=== PATIENT | male | born 1950 | race Hispanic/Latino ===

== ENCOUNTER → 2018-05-18 | Day surgery (SDC) | payer MEDICARE, OTHER ==
[2018-05-11 12:32] LABS: BASOPHILS % 0.5 % (0.0-1.0); EOSINOPHILS # (AUTO) 0.1 (0.0-0.4); EOSINOPHILS % 1.2 % (0.0-6.0); HEMATOCRIT 41.8 % (38.2-49.6); HEMOGLOBIN 14.2 g/dL (14.0-18.0); LYMPHOCYTES # (AUTO) 1.2 (1.0-3.2); LYMPHOCYTES % 21.8 % (18.0-39.1); MEAN CORPUSCULAR VOLUME 91.3 fL (81-99); MONOCYTES # (AUTO) 0.5 (0.2-0.8); NEUTROPHILS # (AUTO) 3.8 (2.1-6.9); NEUTROPHILS % 66.6 % (38.7-80.0); PLATELET COUNT 144 x10e3/uL (140-360); RED BLOOD COUNT 4.58 x10e6/uL (4.3-5.7); RED CELL DISTRIBUTION WIDTH 13.6 % (11.7-14.4)
[~2018-05-18] MED LIST: ATORVASTATIN CA20 MG PO; FENTANYL CITRATE/PF 100MCG/2 ML INJ ONE; FINASTERIDE5 MG PO; FLOMAX0.4 MG PO; HYOSCYAMINE SULFATE 0.5 MG/ML INJ ONE; METFORMIN HCL500 MG PO; METHENAMINE1 GM PO; MIDAZOLAM HCL 2 MG/2 ML VIAL ONE; OMEGA 3 1,0001 EACH PO; OMEPRAZOLE40 MG PO; PROPOFOL IV EMULSION 10 MG/ML 20 ML VIAL ONE; PROPOFOL IV EMULSION 10 MG/ML 50 ML VIAL ONE
--- OUTSIDE RECORDS SUMMARY | 2018-05-18 10:12 | XMS REPORT | Summary of Care ---
Author Author [facility] Organization [facility] Address Unknown Phone Unavailable Encounter RENE Dawn(NATHAN) [id number] Date(s): 10/10/17 - 10/10/17 [facility] [address] [place] [address]- Encounter Diagnosis Acute orchitis (Discharge Diagnosis) - 10/10/17 Discharge Disposition: Home or Self Care Attending Physician: Andrew Fuentes MD Vital Signs Most recent to 1 2 oldest [Reference Range]: Height 165.1 cm (10/10/17 10:16 AM) Temperature Oral 98.1 DegF 98.5 DegF [96.4-99.1 DegF] (10/10/17 1:51 PM) (10/10/17 10:16 AM) Blood Pressure 119/74 mmHg 129/73 mmHg [90-140/60-90 mmHg] (10/10/17 1:51 PM) (10/10/17 10:16 AM) Respiratory Rate 16 BRMIN 18 BRMIN [14-20 BRMIN] (10/10/17 1:51 PM) (10/10/17 10:16 AM) Peripheral Pulse 71 bpm 83 bpm Rate [60-100 bpm] (10/10/17 1:51 PM) (10/10/17 10:16 AM) Weight 79.545 kg (10/10/17 10:16 AM) Body Mass Index 29.18 m2 (10/10/17 10:16 AM) Problem List Condition Effective Dates Status Health Status Informant Arthritis(Confirmed) Resolved Allergies, Adverse Reactions, Alerts Substance Reaction Severity Status NKDA Active Medications Levaquin 500 mg oral tablet 500 mg=1 tab, PO, Q24H, X 14 day, # 14 tab, 0 Refill(s) Start Date: 10/10/17 Stop Date: 10/24/17 Status: Ordered [place] 5/325 oral tablet 1 tab, Route: PO, Drug Form: TAB, Dosing Weight 79.545, kg, ONCE, STAT, Start da te: 10/10/17 11:45:00 CDT, Stop date: 10/10/17 11:45:00 CDT Notes: (Same as: Winfield 325/5) Do not exceed 4gm/day of acetaminophen. Start Date: 10/10/17 Stop Date: 10/10/17 Status: Completed Rocephin 250 mg, Route: IM, Drug form: PDR/INJ, ONCE, Dosing Weight 79.545, kg, Priority: STAT, Start date: 10/10/17 12:10:00 CDT, Stop date: 10/10/17 12:10:00 CDT, ABX Indication: Genital Tract Infection Notes: (Same As: Rocephin) Start Date: 10/10/17 Stop Date: 10/10/17 Status: Completed Rocephin 2 gm, Route: IVPB, Drug form: PDR/INJ, ONCE, Dosing Weight 79.545, kg, Priority: STAT, Start date: 10/10/17 13:16:00 CDT, Stop date: 10/10/17 13:16:00 CDT, ABX Indication: Intra-abdominal Infection Start Date: 10/10/17 Stop Date: 10/10/17 Status: Completed Rocephin 1,750 mg, Route: IVPB, Drug form: PDR/INJ, ONCE, Dosing Weight 79.545, kg, Prior ity: STAT, Start date: 10/10/17 13:08:00 CDT, Stop date: 10/10/17 13:08:00 CDT, ABX Indication: Urinary Tract Infection Start Date: 10/10/17 Stop Date: 10/10/17 Status: Discontinued Zithromax 500 mg, 2 tab, Route: PO, Drug form: TAB, Daily, Dosing Weight 79.545, kg, Start date: 10/10/17 13:00:00 CDT, Duration: 30 day, Stop date: 11/08/17 13:00:00 CDT, ABX Indication: Genital Tract Infection Notes: Take 1 hour before or 2 hours after meals.(Same As: Zithromax) Start Date: 10/10/17 Stop Date: 10/10/17 Status: Discontinued Zofran ODT 4 mg, 1 tab, Route: PO, Drug form: TABDIS, ONCE, Dosing Weight 79.545, kg, Prior ity: STAT, Start date: 10/10/17 11:45:00 CDT, Stop date: 10/10/17 11:45:00 CDT Notes: (Same as: Zofran ODT) Start Date: 10/10/17 Stop Date: 10/10/17 Status: Completed Results ELECTROLYTES Most recent to 1 oldest [Reference Range]: Sodium Lvl [135-145 144 mEq/L mEq/L] (10/10/17 11:58 AM) Potassium Lvl 3.9 mEq/L [3.5-5.1 mEq/L] (10/10/17 11:58 AM) Chloride Lvl [95-109 109 mEq/L mEq/L] (10/10/17 11:58 AM) CO2 [24-32 mEq/L] 27 mEq/L (10/10/17 11:58 AM) AGAP [10.0-20.0 11.9 mEq/L mEq/L] (10/10/17 11:58 AM) CHEM PANEL Most recent to 1 oldest [Reference Range]: Creatinine Lvl 1.14 mg/dL [0.50-1.40 mg/dL] (10/10/17 11:58 AM) eGFR 67 mL/min/1.73m2 1 *NA* (10/10/17 11:58 AM) BUN [7-22 mg/dL] 14 mg/dL (10/10/17 11:58 AM) Glucose Lvl [70-99 142 mg/dL mg/dL] *HI* (10/10/17 11:58 AM) Calcium Lvl 9.3 mg/dL [8.5-10.5 mg/dL] (10/10/17 11:58 AM) 1Result Comment: The eGFR is calculated using the CKD-EPI formula. In most young, healthy individuals the eGFR will be >90 mL/min/1.73m2. The eGFR declines with age. An eGFR of 60-89 may be normal in some populations, particularly the elderly, for whom the CKD-EPI formula has not been extensively validated. Use of the eGFR is not recommended in the following populations: Individuals with unstable creatinine concentrations, including patients and those with serious co-morbid conditions. Patients with extremes in muscle mass or diet. The data above are obtained from the National Kidney Disease Education Program ( NKDEP) which additionally recommends that when the eGFR is used in patients with extremes of body mass index for purposes of drug dosing, the eGFR should be mul tiplied by the estimated BMI. URINE AND STOOL Most recent to 1 oldest [Reference Range]: UA Turbidity [Clear] Clear (10/10/17 11:58 AM) UA Color [Yellow] Yellow *NA* (10/10/17 11:58 AM) UA pH [5.0-8.0] 6.0 (10/10/17 11:58 AM) UA Spec Grav 1.019 [<=1.030] (10/10/17 11:58 AM) UA Glucose [Negative 50 mg/dL mg/dL] *ABN* (10/10/17 11:58 AM) UA Blood [Negative] Negative (10/10/17 11:58 AM) UA Ketones [Negative Negative mg/dL mg/dL] *NA* (10/10/17 11:58 AM) UA Protein [Negative Negative mg/dL mg/dL] (10/10/17 11:58 AM) UA Urobilinogen 4.0 mg/dL [0.1-1.0 mg/dL] *HI* (10/10/17 11:58 AM) UA Bili [Negative] Negative *NA* (10/10/17 11:58 AM) UA Leuk Est Negative [Negative] (10/10/17 11:58 AM) UA Nitrite Negative [Negative] (10/10/17 11:58 AM) UA Sq Epi None Seen *NA* (10/10/17 11:58 AM) HEMATOLOGY Most recent to 1 oldest [Reference Range]: WBC [3.7-10.4 K/CMM] 6.9 K/CMM (10/10/17 11:58 AM) RBC [4.70-6.10 4.40 M/CMM M/CMM] *LOW* (10/10/17 11:58 AM) Hgb [14.0-18.0 g/dL] 13.7 g/dL *LOW* (10/10/17 11:58 AM) Hct [42.0-54.0 %] 40.7 % *LOW* (10/10/17 11:58 AM) MCV [80.0-94.0 fL] 92.7 fL (10/10/17 11:58 AM) MCH [27.0-31.0 pg] 31.2 pg *HI* (10/10/17 11:58 AM) MCHC [32.0-36.0 33.7 g/dL g/dL] (10/10/17 11:58 AM) RDW [11.5-14.5 %] 14.2 % (10/10/17 11:58 AM) MPV [7.4-10.4 fL] 10.5 fL *HI* (10/10/17 11:58 AM) Platelet [133-450 126 K/CMM K/CMM] *LOW* (10/10/17 11:58 AM) Segs [45.0-75.0 %] 77.6 % *HI* (10/10/17 11:58 AM) Lymphocytes 10.4 % [20.0-40.0 %] *LOW* (10/10/17 11:58 AM) Monocytes [2.0-12.0 10.7 % %] (10/10/17 11:58 AM) Eosinophils [0.0-4.0 0.9 % %] (10/10/17 11:58 AM) Basophils [0.0-1.0 0.4 % %] (10/10/17 11:58 AM) Segs-Bands # 5.4 K/CMM [1.5-8.1 K/CMM] (10/10/17 11:58 AM) Lymphocytes # 0.7 K/CMM [1.0-5.5 K/CMM] *LOW* (10/10/17 11:58 AM) Monocytes # [0.0-0.8 0.7 K/CMM K/CMM] (10/10/17 11:58 AM) Eosinophils # 0.1 K/CMM [0.0-0.5 K/CMM] (10/10/17 11:58 AM) Immunizations No data available for this section Procedures No data available for this section Social History Social History Type Response Smoking Status Never smoker; Exposure to Tobacco Smoke None; Cigarette Smoking Last 365 Days No; Reg Smoking Cessation Counseling No entered on: 09/03/17 Assessment and Plan No data available for this section
--- OUTSIDE RECORDS SUMMARY | 2018-05-18 10:12 | XMS REPORT | Summary of Care ---
Author Author [facility] Organization [facility] Address Unknown Phone Unavailable Encounter HQ López(FIN) [id number] Date(s): 09/03/17 - 09/03/17 [facility] [address] [place] [address]- [phone] Encounter Diagnosis Acute urinary retention (Discharge Diagnosis) - 09/03/17 HTN (hypertension) (Discharge Diagnosis) - 09/03/17 Discharge Disposition: Home or Self Care Attending Physician: Brendan Santiago MD Vital Signs 1 2 3 Most recent to oldest [Reference Range]: 195.58 cm (09/03/17 3:09 AM) Height 97.8 DegF (09/03/17 4:25 AM) 97.8 DegF (09/03/17 3:23 AM) 97.5 DegF (09/03/17 3:09 AM) Temperature Oral [96.4-99.1 DegF] 125/73 mmHg (09/03/17 4:25 AM) 149/94 mmHg *HI* (09/03/17 3:23 AM) 160/99 mmHg *HI* (09/03/17 3:09 AM) Blood Pressure [90-140/60-90 mmHg] 18 BRMIN (09/03/17 4:25 AM) 19 BRMIN (09/03/17 3:23 AM) 18 BRMIN (09/03/17 3:09 AM) Respiratory Rate [14-20 BRMIN] 72 bpm (09/03/17 4:25 AM) 70 bpm (09/03/17 3:23 AM) 74 bpm (09/03/17 3:09 AM) Peripheral Pulse Rate [60-100 bpm] 77.273 kg (09/03/17 3:09 AM) Weight 20.2 m2 (09/03/17 3:09 AM) Body Mass Index Problem List Condition Effective Dates Status Health Status Informant Arthritis(Confirmed) Resolved Allergies, Adverse Reactions, Alerts Substance Reaction Severity Status NKDA Active Medications No data available for this section Results ELECTROLYTES Most recent to 1 oldest [Reference Range]: Sodium Lvl [135-145 137 mEq/L mEq/L] (09/03/17 3:42 AM) Potassium Lvl 3.8 mEq/L [3.5-5.1 mEq/L] (09/03/17 3:42 AM) Chloride Lvl [95-109 105 mEq/L mEq/L] (09/03/17 3:42 AM) CO2 [24-32 mEq/L] 26 mEq/L (09/03/17 3:42 AM) AGAP [10.0-20.0 9.8 mEq/L mEq/L] *LOW* (09/03/17 3:42 AM) CHEM PANEL Most recent to 1 oldest [Reference Range]: Creatinine Lvl 0.98 mg/dL [0.50-1.40 mg/dL] (09/03/17 3:42 AM) eGFR 81 mL/min/1.73m2 1 *NA* (09/03/17 3:42 AM) BUN [7-22 mg/dL] 18 mg/dL (09/03/17 3:42 AM) Glucose Lvl [70-99 99 mg/dL mg/dL] (09/03/17 3:42 AM) Calcium Lvl 8.7 mg/dL [8.5-10.5 mg/dL] (09/03/17 3:42 AM) 1Result Comment: The eGFR is calculated [...] oldest [Reference Range]: UA Turbidity [Clear] Clear (09/03/17 3:42 AM) UA Color Ltyellow *NA* (09/03/17 3:42 AM) UA pH [5.0-8.0] 5.0 (09/03/17 3:42 AM) UA Spec Grav 1.006 [<=1.030] (09/03/17 3:42 AM) UA Glucose [Negative Negative mg/dL mg/dL] *NA* (09/03/17 3:42 AM) UA Blood [Negative] Small *ABN* (09/03/17 3:42 AM) UA Ketones [Negative Negative mg/dL mg/dL] *NA* (09/03/17 3:42 AM) UA Protein [Negative Negative mg/dL mg/dL] (09/03/17 3:42 AM) UA Urobilinogen <=1.0 mg/dL [0.1-1.0 mg/dL] *NA* (09/03/17 3:42 AM) UA Bili [Negative] Negative *NA* (09/03/17 3:42 AM) UA Leuk Est Negative [Negative] (09/03/17 3:42 AM) UA Nitrite Negative [Negative] (09/03/17 3:42 AM) UA WBC [0-5 /HPF] <1 /HPF (09/03/17 3:42 AM) UA RBC [0-2 /HPF] <1 /HPF (09/03/17 3:42 AM) UA Sq Epi None Seen *NA* (09/03/17 3:42 AM) Immunizations No data available for this section Procedures No data available for this section Social History Social History Type Response Smoking Status Never smoker; Exposure to Tobacco Smoke None; Cigarette Smoking Last 365 Days No; Reg Smoking Cessation Counseling No entered on: 09/03/17 Assessment and Plan No data available for this section
--- OUTSIDE RECORDS SUMMARY | 2018-05-18 10:12 | XMS REPORT | Summary of Care ---
Author Author [facility] [place] [place] Organization [facility] [place] [place] Address Unknown Phone Unavailable Encounter RENE Dawn(NATHAN) [id number] Date(s): 11/17/14 - 11/17/[address] [facility] [place] [place] [address] [employer] [facility] [place] [address]- Discharge Diagnosis: Fall Discharge Disposition: Home Attending Physician: Riya Valente MD Vital Signs 1 2 3 Most recent to oldest [Reference Range]: 172.72 cm (11/17/14 11:15 AM) Height 1 2 3 Most recent to oldest [Reference Range]: 134/81 mmHg (11/17/14 6:01 PM) 123/75 mmHg (11/17/14 3:29 PM) 119/65 mmHg (11/17/14 2:08 PM) Blood Pressure [90-140/60-90 mmHg] 1 2 3 Most recent to oldest [Reference Range]: 18 BRMIN (11/17/14 6:01 PM) 16 BRMIN (11/17/14 3:29 PM) 16 BRMIN (11/17/14 2:08 PM) Respiratory Rate [14-20 BRMIN] 1 2 3 Most recent to oldest [Reference Range]: 58 bpm *LOW* (11/17/14 6:01 PM) 62 bpm (11/17/14 3:29 PM) 94 bpm (11/17/14 2:08 PM) Peripheral Pulse Rate [60-100 bpm] 1 2 3 Most recent to oldest [Reference Range]: 86.364 kg (11/17/14 11:15 AM) Weight 1 2 3 Most recent to oldest [Reference Range]: 28.95 m2 (11/17/14 11:15 AM) Body Mass Index Problem List Condition Effective Dates Status Health Status Informant Arthritis(Confirmed) Resolved Allergies, Adverse Reactions, Alerts Substance Reaction Severity Status NKDA Active Medications hydromorphone 1 mg, 0.5 mL, Route: IVP, Drug form: INJ, ONCE, Dosing Weight 86.364, kg, Priori ty: STAT, Start date: 11/17/14 11:46:00, Stop date: 11/17/14 11:46:00 Notes: Same as: Dilaudid Start Date: 11/17/14 Stop Date: 11/17/14 Status: Completed [place] 10/325 oral tablet 1 tab, Route: PO, Drug Form: TAB, Dosing Weight 86.364, kg, ONCE, STAT, Start da te: 11/17/14 13:11:00, Stop date: 11/17/14 13:11:00 Notes: Do not exceed 4gm/day of acetaminophen. (Same as: [place] 325/10) Start Date: 11/17/14 Stop Date: 11/17/14 Status: Completed [place] 5/325 oral tablet 1 tab, Route: PO, Drug Form: TAB, Dosing Weight 86.364, kg, ONCE, STAT, Start da te: 11/17/14 14:05:00, Stop date: 11/17/14 14:05:00 Start Date: 11/17/14 Stop Date: 11/17/14 Status: Completed PlasmaLyte A PH-7.4 1,000 mL 1,000 mL, Rate: 999 ml/hr, Infuse over: 1 hr, Route: IV, Dosing Weight 86.364 kg , Total Volume: 1,000, Start date: 11/17/14 16:26:00, Duration: 1 doses or times , Stop date: 11/17/14 17:25:00 Start Date: 11/17/14 Stop Date: 11/17/14 Status: Completed Reglan 10 mg oral tablet 10 mg, 1 tab, Route: PO, Drug form: TAB, QID-Before Meals, Dosing Weight 86.364, kg, Start date: 11/17/14 16:30:00, Duration: 30 day, Stop date: 12/17/14 11:30: 00 Notes: (Same as: Reglan) Take 30 min before meals Start Date: 11/17/14 Stop Date: 11/17/14 Status: Discontinued Reglan 5 mg oral tablet 5 mg=1 tab, PO, QID, PRN Nausea, X 7 day, # 28 tab, 0 Refill(s) Start Date: 11/17/14 Stop Date: 11/24/14 Status: Ordered Saline Flush 0.9% 10 mL, Route: IVP, Drug Form: INJ, Dosing Weight 86.364, kg, PRN, PRN Line Flush , Start date: 11/17/14 11:42:00, Duration: 30 day, Stop date: 12/17/14 11:41:00 Notes: (Same as: BD Posiflush) Start Date: 11/17/14 Stop Date: 11/17/14 Status: Discontinued traMADol 200 mg/24 hours oral capsule, extended release 200 mg=1 cap, PO, Daily, # 30 cap, 0 Refill(s) Start Date: 11/17/14 Stop Date: 12/17/14 Status: Ordered Visipaque 320mg/ml 100 mL, Route: IVP, Drug Form: SOLN, Dosing Weight 86.364, kg, ONCALL, STAT, Sta rt date: 11/17/14 12:51:00, Duration: 1 doses or times, Dose=2.2ml/kg, Max dose =150ml -- "To be infused by Radiology Staff ONLY" Special Instructions: Dose=2.2ml/kg, Max mqnm=680hp -- "To be infused by Radiol ogy Staff ONLY" Start Date: 11/17/14 Stop Date: 11/17/14 Status: Completed Zofran ODT 4 mg, 1 tab, Route: PO, Drug form: TABDIS, ONCE, Dosing Weight 86.364, kg, Prior ity: STAT, Start date: 11/17/14 14:41:00, Stop date: 11/17/14 14:41:00 Notes: (Same as: Zofran ODT) Start Date: 11/17/14 Stop Date: 11/17/14 Status: Completed Results ELECTROLYTES Most recent to 1 oldest [Reference Range]: Sodium Lvl [135-145 145 mEq/L mEq/L] (11/17/14 11:43 AM) Potassium Lvl 4.6 mEq/L [3.5-5.1 mEq/L] (11/17/14 11:43 AM) Chloride Lvl [95-109 106 mEq/L mEq/L] (11/17/14 11:43 AM) CO2 [24-32 mEq/L] 28 mEq/L (11/17/14 11:43 AM) AGAP [10.0-20.0 15.6 mEq/L mEq/L] (11/17/14 11:43 AM) CHEM PANEL Most recent to 1 oldest [Reference Range]: Creatinine Lvl 1.0 mg/dL [0.5-1.4 mg/dL] (11/17/14 11:43 AM) eGFR 80 mL/min/1.73m2 1 *NA* (11/17/14 11:43 AM) BUN [7-22 mg/dL] 19 mg/dL (11/17/14 11:43 AM) Glucose Lvl [70-99 134 mg/dL mg/dL] *HI* (11/17/14 11:43 AM) Calcium Lvl 9.7 mg/dL [8.5-10.5 mg/dL] (11/17/14 11:43 AM) 1Result Comment: The eGFR is calculated [...] be mul tiplied by the estimated BMI. TOXICOLOGY Most recent to 1 oldest [Reference Range]: Etoh (%) <.003 % *NA* (11/17/14 11:43 AM) Ethanol Lvl <3 mg/dL *NA* (11/17/14 11:43 AM) HEMATOLOGY Most recent to 1 oldest [Reference Range]: WBC [3.7-10.4 K/CMM] 6.0 K/CMM (11/17/14 11:43 AM) RBC [4.70-6.10 4.82 M/CMM M/CMM] (11/17/14 11:43 AM) Hgb [14.0-18.0 g/dL] 14.9 g/dL (11/17/1443 AM) Hct [42.0-54.0 %] 45.3 % (11/17/14:43 AM) MCV [80.0-94.0 fL] 94.0 fL (11/17/1443 AM) MCH [27.0-31.0 pg] 30.9 pg (11/17/1443 AM) MCHC [32.0-36.0 32.9 g/dL g/dL] (11/17/14:43 AM) RDW [11.5-14.5 %] 13.8 % (11/17/14 AM) Platelet [133-450 114 K/CMM K/CMM] *LOW* (11/17/14:43 AM) MPV [7.4-10.4 fL] 10.5 fL *HI* (11/17/14:43 AM) Segs [45.0-75.0 %] 67.5 % (11/17/14:43 AM) Lymphocytes 20.8 % [20.0-40.0 %] (11/17/14:43 AM) Monocytes [2.0-12.0 9.6 % %] (11/17/14:43 AM) Eosinophils [0.0-4.0 1.6 % %] (11/17/14:43 AM) Basophils [0.0-1.0 0.5 % %] (11/17/14 11:43 AM) Segs-Bands # 4.0 K/CMM [1.5-8.1 K/CMM] (11/17/14:43 AM) Lymphocytes # 1.2 K/CMM [1.0-5.5 K/CMM] (11/17/14 11:43 AM) Monocytes # [0.0-0.8 0.6 K/CMM K/CMM] (11/17/14 11:43 AM) Eosinophils # 0.1 K/CMM [0.0-0.5 K/CMM] (11/17/14 11:43 AM) PT [12.0-14.7 12.8 seconds seconds] (11/17/14 11:43 AM) INR [0.85-1.17] 0.96 (11/17/14:43 AM) PTT [22.9-35.8 28.9 seconds seconds] (11/17/14:43 AM) Rapid TEG Sample Citrated Whole Blood Type *NA* (11/17/1443 AM) ACT (TEG) [86-118 113 seconds seconds] (11/17/14:43 AM) [place] 0.5 minutes *NA* (11/17/1443 AM) R-time [0.4-0.7 0.7 minutes minutes] (11/17/14:43 AM) K-time [0.6-2.3 1.4 minutes minutes] (11/17/14:43 AM) Angle [64-80 73 degrees degrees] (11/17/1443 AM) Max Amp [52-71 mm] 65 mm (11/17/14:43 AM) G-value [5.0-11.6 K 9.3 K d/sc d/sc] (11/17/14 11:43 AM) Estimated % Lysis 1.1 % [0.0-7.5 %] (11/17/14:43 AM) Immunizations No data available for this section Procedures No data available for this section Social History Social History Type Response Smoking Status Never smoker; Exposure to Tobacco Smoke None; Cigarette Smoking Last 365 Days No; Reg Smoking Cessation Counseling No Assessment and Plan No data available for this section
--- OUTSIDE RECORDS SUMMARY | 2018-05-18 10:12 | XMS REPORT | Continuity of Care Document ---
Author Author [facility] Interface Address Unknown Phone Unavailable Problems Problem Status Onset Date Classification Date Reported Comments Source UNK Active 03/02/2018 [facility] GROIN PAIN Active 01/12/2018 [facility] ACUTE LOWER UTI Active 01/12/2018 [facility] TESTICULAR PAIN Active 01/02/2018 [facility] Acute orchitis 10/10/2017 10/13/2017 [facility] Acute urinary retention 09/03/2017 09/06/2017 [facility] HTN 09/03/2017 09/06/2017 [facility] DIFFICULTY URINATING Active 09/02/2017 [facility] Discharge Diagnosis: Fall 11/17/2014 11/20/2014 [facility] FALL Active 11/17/2014 [facility] Arthritis Resolved Problem 10/13/2017 [facility] URINARY TRACT INFECTION, SITE NOT SPECIF Active [facility] Medications Medication Details Route Status Patient Instructions Ordering Provider Order Date Source Levofloxacin 500 MG Oral Tablet [Levaquin] 500 mg=1 tab, PO, Q24H, X 14 day, # 14 tab, 0 Refill(s) Active 10/10/2017 [facility] Rocephin 2 gm, Route: IVPB, Drug form: PDR/INJ, ONCE, Dosing Weight 79.545, kg, Priority: STAT, Start date: 10/10/17 13:16:00 CDT, Stop date: 10/10/17 13:16:00 CDT, ABX Indication: Intra-abdominal Infection Inactive 10/10/2017 [facility] Rocephin 1,750 mg, Route: IVPB, Drug form: PDR/INJ, ONCE, Dosing Weight 79.545, kg, Priority: STAT, Start date: 10/10/17 13:08:00 CDT, Stop date: 10/10/17 13:08:00 CDT, ABX Indication: Urinary Tract Infection Inactive 10/10/2017 [facility] Azithromycin 500 MG Oral Tablet [Zithromax] 500 mg, 2 tab, Route: PO, Drug form: TAB, Daily, Dosing Weight 79.545, kg, Start date: 10/10/17 13:00:00 CDT, Duration: 30 day, Stop date: 11/08/17 13:00:00 CDT, ABX Indication: Genital Tract InfectionNotes: Take 1 hour before or 2 hours after meals. (Same As: Zithromax) Inactive 10/10/2017 [facility] Rocephin 250 mg, Route: IM, Drug form: PDR/INJ, ONCE, Dosing Weight 79.545, kg, Priority: STAT, Start date: 10/10/17 12:10:00 CDT, Stop date: 10/10/17 12:10:00 CDT, ABX Indication: Genital Tract InfectionNotes: (Same As: Rocephin) Inactive 10/10/2017 [facility] Acetaminophen 325 MG / Hydrocodone Bitartrate 5 MG Oral Tablet [Raton 5/325] 1 tab, Route: PO, Drug Form: TAB, Dosing Weight 79.545, kg, ONCE, STAT, Start date: 10/10/17 11:45:00 CDT, Stop date: 10/10/17 11:45:00 CDTNotes: (Same as: Raton 325/5) Do not exceed 4gm/day of acetaminophen. Inactive 10/10/2017 [facility] Zofran ODT 4 mg, 1 tab, Route: PO, Drug form: TABDIS, ONCE, Dosing Weight 79.545, kg, Priority: STAT, Start date: 10/10/17 11:45:00 CDT, Stop date: 10/10/17 11:45:00 CDTNotes: (Same as: Zofran ODT) Inactive 10/10/2017 [facility] Metoclopramide 5 MG Oral Tablet [Reglan] 5 mg=1 tab, PO, QID, PRN Nausea, X 7 day, # 28 tab, 0 Refill(s) Active 11/17/2014 [facility] Metoclopramide 10 MG Oral Tablet [Reglan] 10 mg, 1 tab, Route: PO, Drug form: TAB, QID-Before Meals, Dosing Weight 86.364, kg, Start date: 11/17/14 16:30:00, Duration: 30 day, Stop date: 12/17/14 11:30:00Notes: (Same as: Reglan) Take 30 min before meals Inactive 11/17/2014 [facility] PlasmaLyte A PH-7.4 1,000 mL 1,000 mL, Rate: 999 ml/hr, Infuse over: 1 hr, Route: IV, Dosing Weight 86.364 kg, Total Volume: 1,000, Start date: 11/17/14 16:26:00, Duration: 1 doses or times, Stop date: 11/17/14 17:25:00 Inactive 11/17/2014 [facility] Zofran ODT 4 mg, 1 tab, Route: PO, Drug form: TABDIS, ONCE, Dosing Weight 86.364, kg, Priority: STAT, Start date: 11/17/14 14:41:00, Stop date: 11/17/14 14:41:00Notes: (Same as: Zofran ODT) Inactive 11/17/2014 [facility] traMADol 200 mg/24 hours oral capsule, extended release 200 mg=1 cap, PO, Daily, # 30 cap, 0 Refill(s) Active 11/17/2014 [facility] Acetaminophen 325 MG / Hydrocodone Bitartrate 5 MG Oral Tablet [Raton 5/325] 1 tab, Route: PO, Drug Form: TAB, Dosing Weight 86.364, kg, ONCE, STAT, Start date: 11/17/14 14:05:00, Stop date: 11/17/14 14:05:00 Inactive 11/17/2014 [facility] Acetaminophen 325 MG / Hydrocodone Bitartrate 10 MG Oral Tablet [Raton 10/325] 1 tab, Route: PO, Drug Form: TAB, Dosing Weight 86.364, kg, ONCE, STAT, Start date: 11/17/14 13:11:00, Stop date: 11/17/14 13:11:00Notes: Do not exceed 4gm/day of acetaminophen. (Same as: Raton 325/10) Inactive 11/17/2014 [facility] iodixanol 100 mL, Route: IVP, Drug Form: SOLN, Dosing Weight 86.364, kg, ONCALL, STAT, Start date: 11/17/14 12:51:00, Duration: 1 doses or times, Dose=2.2ml/kg, Max hbjl=[id number] -- "To be infused by Radiology Staff ONLY"Special Instructions: Dose=2.2ml/kg, Max zway=[id number] -- "To be infused by Radiology Staff ONLY" Inactive 11/17/2014 [facility] Hydromorphone 1 mg, 0.5 mL, Route: IVP, Drug form: INJ, ONCE, Dosing Weight 86.364, kg, Priority: STAT, Start date: 11/17/14 11:46:00, Stop date: 11/17/14 11:46:00Notes: Same as: Dilaudid Inactive 11/17/2014 [facility] Saline Flush 0.9% 10 mL, Route: IVP, Drug Form: INJ, Dosing Weight 86.364, kg, PRN, PRN Line Flush, Start date: 11/17/14 11:42:00, Duration: 30 day, Stop date: 12/17/14 11:41:00Notes: (Same as: BD Posiflush) Inactive 11/17/2014 [facility] Allergies, Adverse Reactions, Alerts Substance Category Reaction Severity Reaction type Status Date Reported Comments Source Immunizations Immunization Date Given Site Status Last Updated Comments Source Results Order Name Results Value Reference Range Date Interpretation Comments Source Scrotal/Testicle w Doppler US Scrotal/Testicle w Doppler US Patient Name: PENNY NEGRON : 1950; Age: 67 years y/o Male MR: [id number] Study: Scrotal/Testicle w Doppler US 01/12/2018 2:29 PM CDT Ordering Physician: Travis Neal MD Clinical Indication: - left testicular pain; Comparison: 10/10/2017 TECHNIQUE: Sonographic evaluation of the scrotum and testes was performed using high resolution B-mode imaging as well as pulse and color Doppler imaging. FINDINGS: TESTES: The right testicle measures 3.6 x 1.6 x 2.1 cm. The left testicle measures 4.5 x 2.8 x 2.8 cm. There is normal bilateral testicular contour and morphology. There are no testicular masses or testicular calcifications. The Doppler images of the testicles show intratesticular color flow and Doppler venous and arterial flow bilaterally. EPIDIDYMIDES: A 9 x 9 x 8 mm complex cyst is noted at the right epididymal head. The left epididymis is enlarged demonstrating increased color flow consistent with acute epididymitis. Multilocular cyst is present at the left epididymal head measuring 4 x 7 x 4 mm. Bilateral epididymal head, body and tail regions are otherwise unremarkable. SCROTUM: Small left hydrocele. There is no evidence of varicoceles. There is no scrotal edema. IMPRESSION: 1. No testicular torsion. 2. Acute left epididymitis. 3. Small left hydrocele. 4. A 9 x 9 x 8 mm complex left epididymal cyst or spermatocele is noted at the right epididymal head. 5. Multilocular cyst is present at the left epididymal head measuring 4 x 7 x 4 mm. SL: PJOHNSONANJEL 01/12/2018 - - Read by: Jimy Jaffe MD Dictated Date/time: 01/12/18 16:33 Electronically Signed by: Jimy Jaffe MD 01/12/18 16:39 FINAL REPORT [facility] ELECTROLYTES AGAP 11.9 meq/L 10.0 - 20.0 10/10/2017 [facility] ELECTROLYTES eGFR 67 mL/min/1.73m2 10/10/2017 Result Comment: The eGFR is calculated using the [...] from the National Kidney Disease Education Program (NKDEP) which additionally recommends that when the eGFR is used in patients with extremes of body mass index for purposes of drug dosing, the eGFR should be multiplied by the estimated BMI. [facility] ELECTROLYTES Calcium Lvl 9.3 mg/dL 8.5 - 10.5 10/10/2017 [facility] ELECTROLYTES Chloride Lvl 109 meq/L 95 - 109 10/10/2017 [facility] ELECTROLYTES CO2 27 meq/L 24 - 32 10/10/2017 [facility] ELECTROLYTES Potassium Lvl 3.9 meq/L 3.5 - 5.1 10/10/2017 [facility] ELECTROLYTES Sodium Lvl 144 meq/L 135 - 145 10/10/2017 [facility] ELECTROLYTES Creatinine Lvl 1.14 mg/dL 0.50 - 1.40 10/10/2017 [facility] ELECTROLYTES Glucose Lvl 142 mg/dL 70 - 99 10/10/2017 [facility] ELECTROLYTES BUN 14 mg/dL 7 - 22 10/10/2017 [facility] HEMATOLOGY MCHC 33.7 g/dL 32.0 - 36.0 10/10/2017 [facility] HEMATOLOGY RDW 14.2 % 11.5 - 14.5 10/10/2017 [facility] MCH 31.2 pg 27.0 - 31.0 10/10/2017 [facility] MPV 10.5 fL 7.4 - 10.4 10/10/2017 [facility] Platelet 126 K/CMM 133 - 450 10/10/2017 [facility] Hct 40.7 % 42.0 - 54.0 10/10/2017 [facility] MCV 92.7 fL 80.0 - 94.0 10/10/2017 [facility] Hgb 13.7 g/dL 14.0 - 18.0 10/10/2017 [facility] WBC 6.9 K/CMM 3.7 - 10.4 10/10/2017 [facility] RBC 4.40 M/CMM 4.70 - 6.10 10/10/2017 [facility] HEMATOLOGY Basophils 0.4 % 0.0 - 1.0 10/10/2017 [facility] Monocytes # 0.7 K/CMM 0.0 - 0.8 10/10/2017 [facility] HEMATOLOGY Eosinophils # 0.1 K/CMM 0.0 - 0.5 10/10/2017 [facility] Segs-Bands # 5.4 K/CMM 1.5 - 8.1 10/10/2017 [facility] Lymphocytes # 0.7 K/CMM 1.0 - 5.5 10/10/2017 [facility] HEMATOLOGY Segs 77.6 % 45.0 - 75.0 10/10/2017 [facility] Eosinophils 0.9 % 0.0 - 4.0 10/10/2017 [facility] Lymphocytes 10.4 % 20.0 - 40.0 10/10/2017 [facility] Monocytes 10.7 % 2.0 - 12.0 10/10/2017 [facility] URINE AND STOOL UA Leuk Est Negative (10/10/17 11:58 AM) Negative 10/10/2017 [facility] URINE AND STOOL UA Bili Negative *NA* (10/10/17 11:58 AM) Negative 10/10/2017 [facility] URINE AND STOOL UA Nitrite Negative (10/10/17 11:58 AM) Negative 10/10/2017 [facility] URINE AND STOOL UA Blood Negative (10/10/17 11:58 AM) Negative 10/10/2017 [facility] URINE AND STOOL UA Ketones Negative mg/dL Negative mg/dL 10/10/2017 [facility] URINE AND STOOL UA Urobilinogen 4.0 mg/dL 0.1 - 1.0 10/10/2017 [facility] URINE AND STOOL UA Sq Epi None Seen 10/10/2017 [facility] URINE AND STOOL UA Glucose 50 mg/dL Negative mg/dL 10/10/2017 [facility] URINE AND STOOL UA Color Yellow *NA* (10/10/17 11:58 AM) Yellow 10/10/2017 [facility] URINE AND STOOL UA Turbidity Clear (10/10/17 11:58 AM) Clear 10/10/2017 [facility] URINE AND STOOL UA Spec Grav 1.019 <=1.030 10/10/2017 [facility] URINE AND STOOL UA pH 6.0 5.0 - 8.0 10/10/2017 [facility] URINE AND STOOL UA Protein Negative mg/dL Negative mg/dL 10/10/2017 [facility] Scrotal/Testicle w Doppler US Scrotal/Testicle w Doppler US Study: Scrotal/Testicle w Doppler US 10/10/2017 10:17 AM CDT Clinical Indication: - Right leg pain and swelling ?3 days rule out torsion; right scrotal swelling Comparison: None. TECHNIQUE: Sonographic evaluation of the scrotum and testes is performed using high resolution B-mode imaging as well as pulse and color Doppler imaging. FINDINGS: TESTES: The right testicle measures 4.4 x 2.6 x 3.1 cm. The left testicle measures 4.1 x 2.1 x 2.9 cm. Right testicle is uniform echotexture without discrete mass or microcalcification. Arterial flow to right testicle is documented with asymmetric increased vascularity. Left testicle is uniform echotexture without discrete mass or microcalcification. Arterial flow to left testicle is documented. EPIDIDYMIDES: 8 mm right epididymal head cyst. 3 mm left epidural head cyst. SCROTUM: Small bilateral hydroceles. There is no evidence of varicoceles. There is no scrotal edema. IMPRESSION: Findings suggesting right orchitis. Negative for testicular torsion SL: ALIVIA 10/10/2017 - - Read by: Brendan Contreras MD Dictated Date/time: 10/10/17 11:54 Electronically Signed by: Brendan Contreras MD 10/10/17 11:58 FINAL REPORT [facility] ELECTROLYTES CO2 26 meq/L 24 - 32 09/03/2017 [facility] ELECTROLYTES Chloride Lvl 105 meq/L 95 - 109 09/03/2017 [facility] ELECTROLYTES Potassium Lvl 3.8 meq/L 3.5 - 5.1 09/03/2017 [facility] ELECTROLYTES AGAP 9.8 meq/L 10.0 - 20.0 09/03/2017 [facility] ELECTROLYTES Calcium Lvl 8.7 mg/dL 8.5 - 10.5 09/03/2017 [facility] ELECTROLYTES Sodium Lvl 137 meq/L 135 - 145 09/03/2017 [facility] ELECTROLYTES Creatinine Lvl 0.98 mg/dL 0.50 - 1.40 09/03/2017 [facility] ELECTROLYTES eGFR 81 mL/min/1.73m2 09/03/2017 Result Comment: The eGFR is calculated using the [...] from the National Kidney Disease Education Program (NKDEP) which additionally recommends that when the eGFR is used in patients with extremes of body mass index for purposes of drug dosing, the eGFR should be multiplied by the estimated BMI. [facility] ELECTROLYTES Glucose Lvl 99 mg/dL 70 - 99 09/03/2017 [facility] ELECTROLYTES BUN 18 mg/dL 7 - 22 09/03/2017 [facility] URINE AND STOOL UA RBC null 0 - 2 09/03/2017 [facility] URINE AND STOOL UA Blood Small *ABN* (09/03/17 3:42 AM) Negative 09/03/2017 [facility] URINE AND STOOL UA Bili Negative *NA* (09/03/17 3:42 AM) Negative 09/03/2017 [facility] URINE AND STOOL UA Color Ltyellow 09/03/2017 [facility] URINE AND STOOL UA Urobilinogen <=1.0 mg/dL 0.1 - 1.0 09/03/2017 [facility] URINE AND STOOL UA Sq Epi None Seen 09/03/2017 [facility] URINE AND STOOL UA WBC null 0 - 5 09/03/2017 [facility] URINE AND STOOL UA Leuk Est Negative (09/03/17 3:42 AM) Negative 09/03/2017 [facility] URINE AND STOOL UA Nitrite Negative (09/03/17 3:42 AM) Negative 09/03/2017 [facility] URINE AND STOOL UA Spec Grav 1.006 <=1.030 09/03/2017 [facility] URINE AND STOOL UA Turbidity Clear (09/03/17 3:42 AM) Clear 09/03/2017 [facility] URINE AND STOOL UA Protein Negative mg/dL Negative mg/dL 09/03/2017 [facility] URINE AND STOOL UA pH 5.0 5.0 - 8.0 09/03/2017 [facility] URINE AND STOOL UA Ketones Negative mg/dL Negative mg/dL 09/03/2017 [facility] URINE AND STOOL UA Glucose Negative mg/dL Negative mg/dL 09/03/2017 [facility] ELECTROLYTES AGAP 15.6 meq/L 10.0 - 20.0 11/17/2014 [facility] ELECTROLYTES eGFR 80 mL/min/1.73m2 11/17/2014 Result Comment: The eGFR is calculated using the [...] from the National Kidney Disease Education Program (NKDEP) which additionally recommends that when the eGFR is used in patients with extremes of body mass index for purposes of drug dosing, the eGFR should be multiplied by the estimated BMI. [facility] ELECTROLYTES Calcium Lvl 9.7 mg/dL 8.5 - 10.5 11/17/2014 [facility] ELECTROLYTES CO2 28 meq/L 24 - 32 11/17/2014 [facility] ELECTROLYTES BUN 19 mg/dL 7 - 22 11/17/2014 [facility] ELECTROLYTES Sodium Lvl 145 meq/L 135 - 145 11/17/2014 [facility] ELECTROLYTES Creatinine Lvl 1.0 mg/dL 0.5 - 1.4 11/17/2014 [facility] ELECTROLYTES Potassium Lvl 4.6 meq/L 3.5 - 5.1 11/17/2014 [facility] ELECTROLYTES Chloride Lvl 106 meq/L 95 - 109 11/17/2014 [facility] ELECTROLYTES Glucose Lvl 134 mg/dL 70 - 99 11/17/2014 [facility] HEMATOLOGY G-value 9.3 K d/sc 5.0 - 11.6 11/17/2014 [facility] HEMATOLOGY Max Amp 65 mm 52 - 71 11/17/2014 [facility] HEMATOLOGY Estimated % Lysis 1.1 % 0.0 - 7.5 11/17/2014 [facility] HEMATOLOGY R-time 0.7 min 0.4 - 0.7 11/17/2014 [facility] HEMATOLOGY K-time 1.4 min 0.6 - 2.3 11/17/2014 [facility] HEMATOLOGY Angle 73 degrees 64 - 80 11/17/2014 [facility] HEMATOLOGY Split Point 0.5 min 11/17/2014 [facility] HEMATOLOGY Rapid TEG Sample Type Citrated Whole Blood 11/17/2014 [facility] HEMATOLOGY ACT (TEG) 113 s 86 - 118 11/17/2014 [facility] HEMATOLOGY MPV 10.5 fL 7.4 - 10.4 11/17/2014 [facility] HEMATOLOGY MCHC 32.9 g/dL 32.0 - 36.0 11/17/2014 [facility] HEMATOLOGY RDW 13.8 % 11.5 - 14.5 11/17/2014 [facility] HEMATOLOGY Platelet 114 K/CMM 133 - 450 11/17/2014 [facility] HEMATOLOGY MCV 94.0 fL 80.0 - 94.0 11/17/2014 [facility] HEMATOLOGY MCH 30.9 pg 27.0 - 31.0 11/17/2014 [facility] HEMATOLOGY RBC 4.82 M/CMM 4.70 - 6.10 11/17/2014 [facility] HEMATOLOGY Hgb 14.9 g/dL 14.0 - 18.0 11/17/2014 [facility] HEMATOLOGY Hct 45.3 % 42.0 - 54.0 11/17/2014 [facility] HEMATOLOGY WBC 6.0 K/CMM 3.7 - 10.4 11/17/2014 [facility] HEMATOLOGY PTT 28.9 s 22.9 - 35.8 11/17/2014 [facility] HEMATOLOGY PT 12.8 s 12.0 - 14.7 11/17/2014 [facility] HEMATOLOGY INR 0.96 0.85 - 1.17 11/17/2014 [facility] HEMATOLOGY Basophils 0.5 % 0.0 - 1.0 11/17/2014 [facility] HEMATOLOGY Segs-Bands # 4.0 K/CMM 1.5 - 8.1 11/17/2014 [facility] HEMATOLOGY Lymphocytes # 1.2 K/CMM 1.0 - 5.5 11/17/2014 [facility] HEMATOLOGY Monocytes # 0.6 K/CMM 0.0 - 0.8 11/17/2014 [facility] HEMATOLOGY Eosinophils # 0.1 K/CMM 0.0 - 0.5 11/17/2014 [facility] HEMATOLOGY Segs 67.5 % 45.0 - 75.0 11/17/2014 [facility] HEMATOLOGY Lymphocytes 20.8 % 20.0 - 40.0 11/17/2014 [facility] HEMATOLOGY Monocytes 9.6 % 2.0 - 12.0 11/17/2014 [facility] HEMATOLOGY Eosinophils 1.6 % 0.0 - 4.0 11/17/2014 [facility] TOXICOLOGY Ethanol Lvl null 11/17/2014 [facility] TOXICOLOGY Etoh (%) null 11/17/2014 [facility] Brain wo contrast CT Brain wo contrast CT EXAM: CT BRAIN WITHOUT CONTRAST DATE: Nov 17, 2014 12:32:00 PM INDICATION: Headache after trauma TECHNIQUE: Contiguous axial images of brain are obtained from skull base to vertex without administration intravenous contrast material. Bone and soft tissue algorithms are provided. FINDINGS: Noncontrast images of the head demonstrate no intracranial hemorrhages or other brain injuries. Subarachnoid space calcifications seen in the left parietal region is evidence of prior [employer]IL[employer] FURN[employer]URE CA[employer] infection. The visualized bones are intact. IMPRESSION: No traumatic injury. 11/17/2014 - - Read by: Chris Hughes MD Dictated Date/time: 11/17/14 14:21 Electronically Signed by: Chris Hughes MD 11/17/14 14:22 FINAL REPORT [facility] Chest/Abdomen/Pelvis w IV contrast CT Chest/Abdomen/Pelvis w IV contrast CT EXAM: CT CHEST WITH CONTRAST EXAM: CT ABDOMEN AND PELVIS WITH CONTRAST DATE: Nov 17, 2014 12:32:00 PM INDICATION: Pain Post Trauma COMPARISON: None available. TECHNIQUE: Volumetric acquisition of the chest, abdomen and pelvis following intravenous administration of 100 cc of Visipaque 320. Delayed phase imaging through the abdomen and pelvis, using a radiation reduction technique. Axial, coronal and sagittal reformats. FINDINGS: Lines and Tubes: None. Lower Neck: Visible portions unremarkable. Thoracic Aorta and Mediastinum: No mediastinal hematoma or thoracic aortic injury. Lungs and Pleura: Bibasilar linear atelectasis No contusions. No pleural fluid or pneumothorax Hepatobiliary: Normal. Gallbladder: No injury. Spleen: Normal. Pancreas: Normal. Adrenals: Normal. Kidneys: Normal. Ureters and Bladder: No injury. Reproductive Organs: No injury. Enlarged prostate gland. Gastrointestinal Tract: No injury Peritoneum and Retroperitoneum: No fluid collections or free air. Abdominal/Pelvic Vasculature: No vascular injury. Lymphadenopathy: None. Spine/Bones: No acute abnormality of the spine. No other bony injury. Sclerotic left iliac bone lesion. Soft Tissues: Unremarkable. IMPRESSION: 1. No acute thoracic, abdominal, or pelvic injury. 2. 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 3. Enlarged prostate gland with median lobe hypertrophy 11/17/2014 - - This report was dictated by a Spring Inspector/Fellow. I have personally reviewed the images as well as the Resident's interpretation and agree with the findings. Read by: Taco Mena MD Resident: Taco Mena MD Dictated Date/time: 11/17/14 13:00 Electronically Signed by: Tami White MD 11/17/14 15:00 FINAL REPORT [facility] Spine cervical wo contrast CT Spine cervical wo contrast CT EXAM: CT CERVICAL SPINE WITHOUT CONTRAST DATE: 11/17/2014 at 1230 hours INDICATION: Pain, Trauma COMPARISON: None available TECHNIQUE: Volumetric acquisition of the cervical spine is obtained without contrast. 2mm axial, sagittal and coronal reconstructions are provided. DISCUSSION: No fracture, malalignment or other acute bony abnormality of the cervical spine is identified. No soft tissue abnormality is identified. IMPRESSION: No acute fracture or malalignment 11/17/2014 - - This report was dictated by a Spring Inspector/Fellow. I have personally reviewed the images as well as the Resident's interpretation and agree with the findings. Read by: Taco Mena MD Resident: Taco Mena MD Dictated Date/time: 11/17/14 12:46 Electronically Signed by: Tami White MD 11/17/14 16:21 FINAL REPORT [facility] Pelvis AP DX Pelvis AP DX PELVIS SERIES, one view. DATE: 11/17/2014 at 1144 hours. INDICATION: Pain, trauma.. FINDINGS: Frontal views of the pelvis as well as frogleg views of the right and left hips are obtained and submitted for interpretation. No prior studies are available for comparison. There is no fracture or malalignment visualized in this study. Hip joints, symphysis pubis and sacroiliac joints are unremarkable. Mild degenerative changes of the lumbosacral junction are present. Visualized soft tissues are intact. No displacement of the periarticular fat stripes is demonstrated. IMPRESSION: No acute fracture or malalignment. 11/17/2014 - - Read by: Tami White MD Dictated Date/time: 11/17/14 15:00 Electronically Signed by: Tami White MD 11/17/14 15:01 FINAL REPORT [facility] Chest 1view DX Chest 1view DX CHEST X-RAY, 1 view. DATE: 11/17/2014 at 1144 hours CLINICAL INDICATION: Pain post trauma. FINDINGS: A single AP view of the chest is obtained and submitted for interpretation. Comparison is made to prior study performed same day at 11 no prior study available for comparison. The lungs are low in volume but clear. No pneumothorax or pleural effusion is identified. Cardiomediastinal silhouette, bones and surrounding soft tissues are unremarkable. IMPRESSION: No acute pleural pulmonary abnormality. 11/17/2014 - - Read by: Tami White MD Dictated Date/time: 11/17/14 14:55 Electronically Signed by: Tami White MD 11/17/14 14:58 FINAL REPORT [facility] Vital Signs Vital Sign Value Date Comments Source Respitory Rate 16 10/10/2017 [facility] Heart Rate 71 10/10/2017 [facility] Temperature Oral (F) 98.1 F 10/10/2017 [facility] Systolic (mm Hg) 119 10/10/2017 [facility] Diastolic (mm Hg) 74 10/10/2017 [facility] BMI Calculated 29.18 10/10/2017 [facility] Weight 79.545 10/10/2017 [facility] Height 165.1 cm 10/10/2017 [facility] Temperature Oral (F) 98.5 F 10/10/2017 [facility] Systolic (mm Hg) 129 10/10/2017 [facility] Diastolic (mm Hg) 73 10/10/2017 [facility] Heart Rate 83 10/10/2017 [facility] Respitory Rate 18 10/10/2017 [facility] Systolic (mm Hg) 125 09/03/2017 [facility] Diastolic (mm Hg) 73 09/03/2017 [facility] Temperature Oral (F) 97.8 F 09/03/2017 [facility] Respitory Rate 18 09/03/2017 [facility] Heart Rate 72 09/03/2017 [facility] Respitory Rate 19 09/03/2017 [facility] Systolic (mm Hg) 149 09/03/2017 [facility] Diastolic (mm Hg) 94 09/03/2017 [facility] Heart Rate 70 09/03/2017 [facility] Temperature Oral (F) 97.8 F 09/03/2017 [facility] Weight 77.273 09/03/2017 [facility] BMI Calculated 20.2 09/03/2017 [facility] Height 195.58 cm 09/03/2017 [facility] Temperature Oral (F) 97.5 F 09/03/2017 [facility] Respitory Rate 18 09/03/2017 [facility] Systolic (mm Hg) 160 09/03/2017 [facility] Diastolic (mm Hg) 99 09/03/2017 [facility] Heart Rate 74 09/03/2017 [facility] Systolic (mm Hg) 134 11/17/2014 [facility] Diastolic (mm Hg) 81 11/17/2014 [facility] Respitory Rate 18 11/17/2014 [facility] Heart Rate 58 11/17/2014 [facility] Respitory Rate 16 11/17/2014 [facility] Systolic (mm Hg) 123 11/17/2014 [facility] Diastolic (mm Hg) 75 11/17/2014 [facility] Heart Rate 62 11/17/2014 [facility] Respitory Rate 16 11/17/2014 [facility] Heart Rate 94 11/17/2014 [facility] Systolic (mm Hg) 119 11/17/2014 [facility] Diastolic (mm Hg) 65 11/17/2014 [facility] Height 172.72 cm 11/17/2014 [facility] BMI Calculated 28.95 11/17/2014 [facility] Weight 86.364 11/17/2014 [facility] Encounters Location Location Details Encounter Type Encounter Number Reason For Visit Attending Provider ADM Date DC Date Status Source [facility] [id number] Riya Tran 11/17/2014 11/17/2014 [facility] [id number] Brendan Santiago 09/03/2017 09/03/2017 [facility] [id number] Andrew Fuentes 10/10/2017 10/10/2017 [facility] [id number] NURSE VISIT 04/05/2018 Active [facility] [id number] NURSE VISIT 04/14/2018 Active [facility]patient [id number] ARSENIO HANSEN 05/29/2018 Active [facility] Outpatient [id number] ARSENIO HANSEN 05/29/2018 Active [facility] Procedures Procedure Code Date Perfomer Comments Source
[2018-05-18 14:35] VITALS: BP 142/94
--- NOTE | 2018-05-18 15:06 | Operative Report ---
DATE OF PROCEDURE: May 18, 2018 REFERRING PHYSICIAN: Brianne Ayers MD PROCEDURES PERFORMED 1. Esophagogastroduodenoscopy with biopsies. 2. Colonoscopy with polypectomy. INDICATIONS FOR EGD: Dyspepsia. INDICATIONS FOR COLONOSCOPY: Colorectal cancer screening. MEDICATION: Patient was done under MAC. Please see anesthesiologist's note. PROCEDURE: With the patient in the left lateral decubitus position, the flexible fiberoptic Olympus gastroscope was introduced into the esophagus under direct visualization without any difficulty. There were some erosions noted in the distal esophagus. There was a small island of velvety red mucosa suspicious for Malik's esophagus, and that was biopsied. The scope was then advanced with ease into the stomach. Mucosa overlying the antrum and the body revealed some patchy erythema and mild to moderate edema, and biopsies were obtained and sent to stain for H. pylori. An approximately 1.3-cm, sessile, submucosal lesion was noted in the mid body greater curvature, and that was biopsied. The pylorus was of normal contour and shape. It was intubated with ease, and the scope was advanced all the way to the 2nd portion of the duodenum. The scope was then withdrawn slowly, and minute ulcers were noted in the proximal 2nd portion and the duodenal bulb without active bleeding or stigmata of recent hemorrhage. The scope was then withdrawn back into the stomach and retroflexed. Mucosa overlying the fundus and the cardia appeared to be within normal limits. The scope was then straightened out. It was subsequently withdrawn. Patient tolerated the procedure well. IMPRESSION 1. Distal erosive esophagitis. 2. Rule out Malik's esophagus. 3. Gastritis, biopsied. Biopsies sent to stain for H. pylori. 4. Approximately 1.3-cm, sessile, submucosal lesion, mid body greater curvature, biopsied. Will need endoscopic ultrasound to further delineate the nature of this lesion. 5. Duodenal ulcers, bulb and proximal 2nd portion, minute, without active bleeding or stigmata of recent hemorrhage. PLAN: Follow up histology. Initiate Protonix 40 mg 1 p.o. q.a.m. a.c. The patient was then turned around. After adequate lubrication of the anal canal, a flexible fiberoptic Olympus colonoscope was inserted into the rectum with ease and advanced all the way to the cecum. It was then withdrawn slowly. Mucosa overlying the cecum and ascending colon appeared to be within normal limits. One polyp was hot biopsied from the transverse colon. Four polyps were snared from the sigmoid colon. Four polyps were hot biopsied and 2 polyps were snared from the rectum. The scope was then retroflexed into the distal rectum, and small internal hemorrhoids were noted, none of which was actively bleeding. The scope was then straightened out. It was subsequently withdrawn. Patient tolerated the procedure well. IMPRESSION 1. Transverse colon polyp, hot biopsied. 2. Sigmoid colon polyps x4, snared. 3. Rectal polyps x7, two snared and four hot biopsied. 4. Internal hemorrhoids, none actively bleeding. PLAN: Follow up histology. Initiate high-fiber, low-fat diet. Initiate high-fiber supplement. Patient might benefit from a followup colonoscopy in 1 to 2 years. A total of 11 polyps were removed. Job#: [id number] cc:BRIANNE AYERS MD
== END | disposition home or self-care (01) ==
LOC: OR 10:05
PROVIDERS: ATTEND Internal Medicine Gastroenterology
DX: Z12.11 Encounter for screening for malignant neoplasm of colon (principal); D12.5 Benign neoplasm of sigmoid colon; K62.1 Rectal polyp; K29.60 Other gastritis without bleeding; K22.10 Ulcer of esophagus without bleeding; K26.9 Duodenal ulcer, unspecified as acute or chronic, without hemorrhage or perforation; K59.00 Constipation, unspecified; K21.0 Gastro-esophageal reflux disease with esophagitis; K31.89 Other diseases of stomach and duodenum; K64.8 Other hemorrhoids; E11.9 Type 2 diabetes mellitus without complications; Z01.810 Encounter for preprocedural cardiovascular examination; Z01.812 Encounter for preprocedural laboratory examination; Z79.84 Long term (current) use of oral hypoglycemic drugs; Z68.28 Body mass index [BMI] 28.0-28.9, adult
CPT/HCPCS: 36415 ×2; 43239; 45384; 45385; 82948; 85025; 88305; 88312; 93005; J1980; J2250; J2704; 45378

== ENCOUNTER → 2019-07-10 | Day surgery (SDC) | payer MEDICARE, OTHER ==
[~2019-07-10] MED LIST changes: -HYOSCYAMINE SULFATE 0.5 MG/ML INJ ONE; -PROPOFOL IV EMULSION 10 MG/ML 20 ML VIAL ONE
[2019-07-10 08:55] VITALS: BP 136/82
== END | disposition home or self-care (01) ==
LOC: OR 05:17
PROVIDERS: ATTEND Internal Medicine Gastroenterology
DX: K29.70 Gastritis, unspecified, without bleeding (principal); K31.89 Other diseases of stomach and duodenum; K21.9 Gastro-esophageal reflux disease without esophagitis; K20.9 Esophagitis, unspecified; K44.9 Diaphragmatic hernia without obstruction or gangrene; K59.00 Constipation, unspecified; E78.00 Pure hypercholesterolemia, unspecified; R74.8 Abnormal levels of other serum enzymes; E78.5 Hyperlipidemia, unspecified; Z01.810 Encounter for preprocedural cardiovascular examination
CPT/HCPCS: 43239; 93005; J2250; J2704; J3010